=== PATIENT | male | born 1975 | race Caucasian/White ===

== ENCOUNTER 2021-02-16 21:40 | Emergency (ER) | payer BC ==
[2021-02-16] MEDS ORDERED: Acetaminophen/Codeine 300-30 MG Tab PO ONE (21:41)
[2021-02-16] MEDS ORDERED: Cephalexin 500 MG Cap PO ONE (21:41)
--- NOTE | 2021-02-16 22:03 | EDM.PDOC ---
ED HPI GENERAL MEDICAL PROBLEM - General Stated Complaint: ABCESS TOOTH Time Seen by Provider: 02/16/21 22:00 Source of Information: Reports: Patient History Limitations: Reports: No Limitations - History of Present Illness INITIAL COMMENTS - FREE TEXT/NARRATIVE: Codey complains of tooth pain. Left jaw. For a few days. ED ROS GENERAL - Review of Systems Review Of Systems: Comprehensive ROS is negative, except as noted in HPI. ED EXAM, GENERAL - Physical Exam Exam: See Below Exam Limited By: No Limitations General Appearance: Alert, WD/WN Ears: Normal External Exam, Normal Canal, Hearing Grossly Normal, Normal TMs Ear Exam: Bilateral Ear: Auricle Normal, Canal Normal, TM normal Departure - Departure Time of Disposition: 22:02 Disposition: Home, Self-Care 01 Condition: Good Clinical Impression: Tooth abscess Instructions: Cephalexin Tablets or Capsules, Acetaminophen; Codeine tablets Care Plan Goals: Follow up with dentist next week. If no improvement, return to ED or see your primary physician. - Problem List & Annotations (1) Tooth abscess SNOMED Code(s): 986077553 Code(s): K04.7 - PERIAPICAL ABSCESS WITHOUT SINUS Status: Acute Current Visit: No - Problem List Review Problem List Initiated/Reviewed/Updated: Yes - Assessment/Plan Plan: Kelfex and T#3.
== END 2021-02-16 22:20 | disposition home or self-care (01) ==
LOC: FB.ED 21:40
DX: K04.7 Periapical abscess without sinus (principal)
CPT/HCPCS: 99282; A9270